=== PATIENT | male | born 1985 | race African-American/Black ===

== ENCOUNTER 2016-10-20 02:27 | Emergency (ER) | payer OTHER ==
[2016-10-20 02:39] VITALS: BP 183/107
--- NOTE | 2016-10-20 03:11 | ED ---
Priscilla England Claudia, scribed for Massimo Copeland MD on 10/20/16 at 0234 . HPI Diabetic - HPI Summary HPI Summary: 31 year old male presents to the ED via [facility] for elevated blood sugar levels. Pt notes that his blood sugar was 295 before coming to ED. Pt states PMHx of Diabetes but due to lack of insurance he is unable to take Rx. - History Of Current Complaint Time Seen by Provider: 10/20/16 02:27 Hx Obtained From: Patient Onset/Duration: Sudden Onset - Allergies/Home Medications Allergies/Adverse Reactions: Allergies Allergy/AdvReac Type Severity Reaction Status Date / Time No Known Allergies Allergy Verified 01/05/14 11:15 PMH/Surg Hx/FS Hx/Imm Hx Previously Healthy: Yes Endocrine/Hematology History: Reports: Hx Diabetes - Social History Occupation: Employed Full-time Alcohol Use: None Substance Use Type: Reports: None Type: Cigarettes Amount Used/How Often: 1/2 PPD Review of Systems Constitutional: Negative Negative: Fever, Chills Eyes: Negative ENT: Negative Cardiovascular: Negative Respiratory: Negative Gastrointestinal: Negative Genitourinary: Negative Musculoskeletal: Negative Skin: Negative Neurological: Negative Psychological: Normal All Other Systems Reviewed And Are Negative: Yes Physical Exam Triage Information Reviewed: Yes Vital Signs On Initial Exam: Initial Vitals Temp Pulse Resp BP Pulse Ox 98.3 F 91 16 183/107 96 10/20/16 02:37 10/20/16 02:37 10/20/16 02:37 10/20/16 02:37 10/20/16 02:37 Vital Signs Reviewed: Yes Appearance: Positive: Well-Appearing, No Pain Distress Skin: Positive: Warm Eyes: Positive: FLO ENT: Positive: Hearing grossly normal Respiratory/Lung Sounds: Positive: Breath Sounds Present Neurological: Positive: Alert, Oriented to Person Place, Time Psychiatric: Positive: Affect/Mood Appropriate Diagnostics - Vital Signs Vital Signs Temp Pulse Resp BP Pulse Ox 10/20/16 02:37 98.3 F 91 16 183/107 96 - Laboratory Lab Statement: Any lab studies that have been ordered have been reviewed, and results considered in the medical decision making process. Diabetic Course/Dx - Diagnoses Provider Diagnoses: Hyperglycemia Discharge - Discharge Plan Condition: Stable Disposition: HOME Patient Education Materials: Diabetic Hypoglycemia (ED) Referrals: [facility] [Outside] - 3 Days The documentation as recorded by the Priscilla bird Claudia accurately reflects the service I personally performed and the decisions made by me, Massimo Copeland MD.
== END 2016-10-20 02:52 | disposition home or self-care (01) ==
LOC: ED 02:27
DX: E11.65 Type 2 diabetes mellitus with hyperglycemia (principal)
CPT/HCPCS: 99282

== ENCOUNTER 2017-11-08 16:25 | Emergency (ER) | payer SELFPAY ==
[2017-11-08 18:22] VITALS: BP 178/109
[2017-11-08] MEDS ORDERED: Ibuprofen TAB* 400 MG PO ONE (18:27)
--- NOTE | 2017-11-08 18:45 | ED ---
Lower Extremity - HPI Summary HPI Summary: 32 yr old with right knee pain. Onset of pain was yesterday when slipped on wooden deck at friend's house. Complains of pain over the medial condyle of knee and medial knee area. He states he fell and knee bent back. Pain is moderate. Hurts worse to walk. Denies other injuries. - History of Current Complaint Chief Complaint: UCLowerExtremity Stated Complaint: RIGHT KNEE INJURY Time Seen by Provider: 11/08/17 18:19 Pain Intensity: 9 - Allergies/Home Medications Allergies/Adverse Reactions: Allergies Allergy/AdvReac Type Severity Reaction Status Date / Time No Known Allergies Allergy Verified 11/08/17 18:14 PMH/Surg Hx/FS Hx/Imm Hx Endocrine/Hematology History: Reports: Hx Diabetes Infectious Disease History: No Infectious Disease History: Denies: Traveled Outside the [place] in Last 30 Days - Social History Alcohol Use: Weekly Alcohol Amount: every other day Substance Use Type: Reports: None Smoking Status (MU): Light Every Day Tobacco Smoker Type: Cigarettes Amount Used/How Often: 1/2 PPD Review of Systems Constitutional: Negative Positive: Other - knee pain All Other Systems Reviewed And Are Negative: Yes Physical Exam Triage Information Reviewed: Yes Vital Signs On Initial Exam: Initial Vitals Temp Pulse Resp BP Pulse Ox 99 F 102 17 178/109 99 11/08/17 18:16 11/08/17 18:16 11/08/17 18:16 11/08/17 18:16 11/08/17 18:16 Vital Signs Reviewed: Yes Appearance: Positive: Well-Appearing, No Pain Distress Skin: Positive: Warm Head/Face: Positive: Normal Head/Face Inspection Eyes: Positive: EOMI ENT: Positive: Normal ENT inspection Respiratory/Lung Sounds: Positive: Clear to Auscultation, Breath Sounds Present Cardiovascular: Positive: RRR. Negative: Murmur Abdomen Description: Positive: Nontender Musculoskeletal: Positive: Other - medial collateral lig of right knee and medial condyle right femur tender. No joint effusion, no redness, no bruise. Neurological: Positive: Sensory/Motor Intact, Alert, Oriented to Person Place, Time, CN Intact II-III Psychiatric: Positive: Normal - [place] Coma Scale Best Eye Response: 4 - Spontaneous Best Motor Response: 6 - Obeys Commands Best Verbal Response: 5 - Oriented Coma Scale Total: 15 Diagnostics - Vital Signs Vital Signs Temp Pulse Resp BP Pulse Ox 11/08/17 18:16 99 F 102 17 178/109 99 - Laboratory Lab Statement: Any lab studies that have been ordered have been reviewed, and results considered in the medical decision making process. - Radiology right knee Xray Interpretation: No Acute Changes Radiology Interpretation Completed By: Radiologist Lower Extremity Course/Dx - Course Course Of Treatment: 32 yr old with right knee sprain. Knee immobilizer, crutches, and dc home fu with ortho - Diagnoses Provider Diagnoses: Knee MCL sprain, Hypertension Discharge - Discharge Plan Condition: Good Disposition: HOME Prescriptions: Ibuprofen TAB* [Motrin TAB* 600 MG] 600 mg PO Q6H PRN #14 tab PRN Reason: Pain Patient Education Materials: Knee Sprain (ED), Knee Immobilizer (ED) Forms: *Work Release Referrals: No Primary Care Phys,NOPCP [Primary Care Provider] - [facility] [place] [facility] [Outside] Jun Haro MD [Medical Doctor] -
--- NOTE | 2017-11-08 19:07 | RAD ---
Indication: Right knee pain. 4 views of the right knee demonstrates no fracture or dislocation. No joint effusion is identified. IMPRESSION: Unremarkable right knee.
== END 2017-11-08 19:54 | disposition home or self-care (01) ==
LOC: UCCORT 16:25
DX: S83.411A Sprain of medial collateral ligament of right knee, initial encounter (principal); W01.0XXA Fall on same level from slipping, tripping and stumbling without subsequent striking against object, initial encounter; Y93.9 Activity, unspecified; Y92.008 Other place in unspecified non-institutional (private) residence as the place of occurrence of the external cause; I10 Essential (primary) hypertension; E11.9 Type 2 diabetes mellitus without complications; F17.210 Nicotine dependence, cigarettes, uncomplicated
CPT/HCPCS: 99213; A9270-GY; G0463

== ENCOUNTER 2023-06-06 23:08 | Observation (INO) ==
[2023-06-07] MEDS ORDERED: NS 0.9% 1000 ml BAG 1,000 ML IV ONE ×2 (00:26→01:24)
[2023-06-07 00:57] LABS: ABS Basophils 0.1 10^3/uL (0.0-0.1); ABS Eosinophils 0.1 10^3/uL (0.0-0.5); ABS Lymphocytes 2.2 10^3/uL (1.0-4.8); ABS Monocytes 1.1 10^3/uL (0.0-1.1); ABS Neutrophils 13.8 10^3/uL (1.5-7.6); ABS Nucleated RBC 0.01 10^3/ul; Eosinophil % 0.5 %; Hematocrit 33.1 % (38-53); Hemoglobin 11.2 g/dL (13.2-16.3); Lymphocyte % 12.8 %; Mean Corpuscular Hemoglobin 30.3 pg (27-33); Mean Corpuscular Hgb Conc 33.8 g/dL (31-36); Mean Corpuscular Volume 89.8 fL (80-97); Mean Platelet Volume 9.2 fL (7.5-11.2); Platelet Count 226 10^3/uL (150-450); Red Blood Count 3.69 10^6/uL (4.06-5.63); Red Cell Distribution Width 13.1 % (12-17); White Blood Count 17.4 10^3/uL (3.6-10.2)
[2023-06-07 01:06] LABS: INR 1.07 (0.83-1.13)
[2023-06-07 01:18] LABS: Albumin 4.1 g/dL (3.2-5.2); Albumin/Globulin Ratio 1.1 (1-3); Creatinine, Serum 4.42 mg/dL (0.67-1.17); Globulin 3.7 g/dL (2-4); Magnesium 2.2 mg/dL (1.9-2.7); Potassium 4.4 mmol/L (3.5-5.0); Total Bilirubin 0.5 mg/dL (0.2-1.0); Total Protein 7.8 g/dL (6.4-8.9); eGFR CKD-EPI 16.7 (>60)
[2023-06-07] MEDS ORDERED: Piperacillin/Tazobac 3.375 BAG 3.375 GM/100 ML BAG IV ONE (03:32)
[2023-06-07] MEDS ORDERED: Dextrose 50% Syringe 50 ml 25 GM/50 ML SYRINGE IV PUSH PRN (05:00)
[2023-06-07 06:14] LABS: High Sensitivity Troponin 1 Hr 8 pg/mL (<20)
[2023-06-07] MEDS ORDERED: cefTRIAXone 1 gm/50 mL D5W 1 GM/50 ML BAG IV SCH ×2 (06:45→09:00)
[2023-06-07] MEDS ORDERED: Lactated Ringers 1000 ml BAG 1,000 ML IV SCH (07:00)
[2023-06-07] MEDS ORDERED: metroNIDAZOLE IV 500 MG/100ML 500 MG/100 ML BAG IVPB SCH ×2 (07:30→10:00)
[2023-06-07 08:25] LABS: Urine Appearance Cloudy; Urine Bilirubin Negative (Negative); Urine Blood Negative (Negative); Urine Color Yellow; Urine Glucose 3+(>=500 mg/dL) (Negative); Urine Ketones Negative (Negative); Urine Nitrite Negative (Negative); Urine Protein Negative (Negative); Urine Specific Gravity 1.016 (1.002-1.030); Urine Urobilinogen Negative (Negative)
[2023-06-07 08:45] LABS: Urine Benzodiazepine Screen None Detected (None Detect); Urine Cannabinoids Screen Presumptive Positive (None Detect); Urine Opiates Screen None Detected (None Detect)
[2023-06-07 08:46] LABS: Urine Bacteria Absent (Absent); Urine Red Blood Cell 2+(6-10/hpf) (Absent); Urine Squamous Epithelial Cell Present (Absent); Urine White Blood Cell 3+(>20/hpf) (Absent)
[2023-06-07] MEDS: Enoxaparin 30 MG/0.3 ML SYR SUBCUT SCH (09:39)
[2023-06-07] MEDS: Lactated Ringers 1000 ml BAG 1,000 ML IV SCH ×4 (09:39→23:05)
[2023-06-07 10:02] LABS: Calcium 8.6 mg/dL (8.6-10.3); Creatinine, Serum 3.21 mg/dL (0.67-1.17); Glucose Confirmatory 427 mg/dL (70-100); Potassium 4.2 mmol/L (3.5-5.0); eGFR CKD-EPI 24.5 (>60)
[2023-06-07 11:43] LABS: ABS Basophils 0.2 10^3/uL (0.0-0.1); ABS Eosinophils 0.2 10^3/uL (0.0-0.5); ABS Lymphocytes 3.7 10^3/uL (1.0-4.8); ABS Monocytes 0.7 10^3/uL (0.0-1.1); ABS Neutrophils 11.3 10^3/uL (1.5-7.6); ABS Nucleated RBC 0.01 10^3/ul; Eosinophil % 1.1 %; Hematocrit 33.2 % (38-53); Hemoglobin 11.4 g/dL (13.2-16.3); Mean Corpuscular Hemoglobin 30.5 pg (27-33); Mean Corpuscular Hgb Conc 34.3 g/dL (31-36); Mean Corpuscular Volume 88.7 fL (80-97); Mean Platelet Volume 8.9 fL (7.5-11.2); Platelet Count 244 10^3/uL (150-450); Red Blood Count 3.75 10^6/uL (4.06-5.63); Red Cell Distribution Width 12.9 % (12-17); White Blood Count 15.9 10^3/uL (3.6-10.2)
[2023-06-07] MEDS: Amoxicillin/Clavul 500/125 TAB (Augmentin 500 mg tab) PO SCH (21:05)
[2023-06-08] MEDS: Lactated Ringers 1000 ml BAG 1,000 ML IV SCH ×2 (03:24→07:48)
[2023-06-08 06:53] LABS: Calcium 8.4 mg/dL (8.6-10.3); Potassium 4.2 mmol/L (3.5-5.0)
[2023-06-08 06:59] LABS: Creatinine, Serum 1.84 mg/dL (0.67-1.17); eGFR CKD-EPI 47.8 (>60)
[2023-06-08 07:16] LABS: ABS Basophils 0.1 10^3/uL (0.0-0.1); ABS Eosinophils 0.2 10^3/uL (0.0-0.5); ABS Lymphocytes 3.7 10^3/uL (1.0-4.8); ABS Monocytes 0.6 10^3/uL (0.0-1.1); ABS Neutrophils 5.9 10^3/uL (1.5-7.6); Eosinophil % 2.3 %; Hematocrit 26.8 % (38-53); Hemoglobin 9.5 g/dL (13.2-16.3); Mean Corpuscular Hemoglobin 31.3 pg (27-33); Mean Corpuscular Hgb Conc 35.4 g/dL (31-36); Mean Corpuscular Volume 88.4 fL (80-97); Mean Platelet Volume 9.5 fL (7.5-11.2); Platelet Count 200 10^3/uL (150-450); Red Blood Count 3.03 10^6/uL (4.06-5.63); Red Cell Distribution Width 12.3 % (12-17); White Blood Count 10.6 10^3/uL (3.6-10.2)
[2023-06-08] MEDS: Amoxicillin/Clavul 500/125 TAB (Augmentin 500 mg tab) PO SCH (08:33)
[2023-06-08] MEDS: Enoxaparin 30 MG/0.3 ML SYR SUBCUT SCH (08:33)
[2023-06-08] MEDS ORDERED: Insulin GLARGINE 100 un/ml 10 ml VIAL SUBCUT SCH (09:00)
[2023-06-08 10:20] VITALS: BP 131/86
== END 2023-06-08 12:35 | disposition short-term general hospital (02) ==
LOC: EDHOLD 23:08 → ED 23:08 → SUATTDRO 06-07 05:01 → SSU 06-07 07:10
PROVIDERS: ADMIT Internal Medicine; ATTEND Internal Medicine